=== PATIENT | female | born 1955 | race Caucasian/White ===

== ENCOUNTER 2016-09-08 08:38 | Emergency (ER) | payer BC ==
[2016-09-08] MEDS ORDERED: Ketorolac Tromethamine 60 MG/2 ML VIAL ONE (09:04)
[2016-09-08] MEDS ORDERED: Ondansetron ODT 4 MG TAB ONE (09:04)
[2016-09-08 09:14] LABS: Clarity Clear (Clear); Glucose, Urine (Dipstick) 250 mg/dL (Negative); Leukocyte Large (Negative); Nitrite Negative (Negative); Protein, Urine (Dipstick) 100 mg/dL (Neg-Trace); Urobilinogen 0.2 mg/dL (0.2-1.0)
[2016-09-08 09:15] LABS: Bacteria/HPF 1+ HPF (None Seen); Bilirubin Negative (Negative); Blood, Urine Large (Negative)
[2016-09-08] MEDS ORDERED: cefTRIAXone\\ROCEPHIN 1 GM VIAL ONE (09:18)
[2016-09-08] MEDS ORDERED: Lidocaine 1% 20 ML MDV ONE (09:19)
== END 2016-09-08 09:50 | disposition home or self-care (01) ==
LOC: MADERS 08:38
DX: N39.0 Urinary tract infection, site not specified (principal); E11.9 Type 2 diabetes mellitus without complications; K21.9 Gastro-esophageal reflux disease without esophagitis
CPT/HCPCS: 81001; 87077; 87086; 87186; 96372; J0696; J1885; J2001; Q0162